=== PATIENT | male | born 1960 | race American Indian/Alaskan Native ===

== ENCOUNTER 2018-07-17 10:09 | Emergency (ER) | payer OTHER ==
[2018-07-17 10:19] VITALS: BP 147/92; PULSE 79; RESP 18; TEMP 98; O2SAT 97
[2018-07-17 11:52] LABS: SQUAMOUS EPITHIAL < 1 /hpf (0-5); URINE BILIRUBIN NEGATIVE (NEGATIVE); URINE BLOOD NEGATIVE (NEGATIVE); URINE CLARITY Clear (Clear); URINE COLOR Yellow (YELLOW); URINE GLUCOSE (UA) NORMAL (Normal); URINE LEUKOCYTE ESTERASE NEG Leu/uL (Negative); URINE PROTEIN NEGATIVE (NEGATIVE); URINE UROBILINOGEN NORMAL mg/dL (0.2-1.0)
--- NOTE | 2018-07-17 12:33 | US ---
Date of service: 07/17/2018 HISTORY: pain TECHNIQUE: Realtime sonography through the scrotum with color and doppler flow. COMPARISON: None Available. FINDINGS: RIGHT TESTICLE: Measures 4.3 x 1.9 x 3.1 cm. Homogeneous echotexture. Blood flow is demonstrated. RIGHT EPIDIDYMIS: 0.3 x 0.3 x 0.4 cm cyst. LEFT TESTICLE: Measures 4.2 x 1.7 x 2.6 cm. Homogeneous echotexture. Blood flow is demonstrated. LEFT EPIDIDYMIS: Unremarkable. HYDROCELE: Small right and trace left-sided hydroceles. VARICOCELE: Left-sided varicocele. OTHER FINDINGS: None. IMPRESSION: Small right and trace left hydroceles. Left varicocele. 0.3 x 0.3 x 0.4 cm right-sided epididymal cyst.
[2018-07-17] MEDS ORDERED: cefTRIAXone 250 MG, Lidocaine Hydrochloride 1% 1 ML IM STA (12:57)
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
== END 2018-07-17 13:36 | disposition home or self-care (01) ==
LOC: C.ER 10:09
DX: N50.819 Testicular pain, unspecified (principal)
CPT/HCPCS: 76870; 81001; 84153; 87491; 87591; 96372; 99284; J0696